=== PATIENT | male | born 1980 | race Caucasian/White ===

== ENCOUNTER 2016-07-13 11:43 | Emergency (ER) | payer OTHER ==
[~2016-07-13] VITALS: Ht 177.8 cm; Wt 81.6 kg
--- NOTE | 2016-07-13 12:19 | ED CARDIAC/CP/PALPITATIONS ---
History of Present Illness General Chief Complaint: Chest Pain Stated Complaint: CP DIZZINESS Source: patient Exam Limitations: no limitations Vital Signs & Intake/Output Vital Signs & Intake/Output Vital Signs Date Time Temp Pulse Resp B/P Pulse O2 O2 Flow FiO2 Ox Delivery Rate 07/13 1403 97.7 67 18 115/64 97 Room Air 07/13 1221 Room Air 07/13 1152 98.0 100 20 150/100 97 Room Air Allergies Coded Allergies: Penicillins (UNKNOWN 07/13/16) amoxicillin (UNKNOWN 07/13/16) cefaclor (From [facility]) (UNKNOWN 07/13/16) Reconcile Medications Cetirizine HCl (Zyrtec) 10 MG TABLET 1 TAB PO DAILY ALLERGIES (Reported) Triage Note: PT TO ED C/O DIZZINESS X 3 DAYS. ALSO STATES BURNING CHEST PAIN AND LEFT SHOULDER ON AND OFF. DENIES N/V. CURRENTLY DENIES C/P. NO SOB OR DIFF BREATHING NOTED. Triage Nurses Notes Reviewed? yes HPI: 36-year-old male with complaints of intermittent palpitations that had a sudden onset, associated with dizziness and feeling lightheaded and irregular heartbeat. He has been having these symptoms intermittently for the last 3 days and he has some several times per day that lasts a few minutes. He seems tenderness and more when he is ambulatory and when he stands up and they improve when he is resting. He has had several episodes of illnesses recently over the last several weeks with a URI with cough congestion and rhinorrhea as well as a gastroenteritis with vomiting. 2 weeks ago he was seen at [facility] and diagnosed with esophageal spasm and he was having vomiting and anterior chest pain at that time. He states that they did blood tests and a troponin which was negative. His grandfather has heart disease that started in his 40s, there is no other heart disease noted in the family. He feels well at this time, he has a mild feeling of heart racing sensation. (YEFRI LOPEZ) Past History Travel History Traveled to [place] past 21 day No Medical History Any Pertinent Medical History? none Surgical History Surgical History: non-contributory Psychosocial History What is your primary language Korean Tobacco Use: Quit >30 days ago ETOH Use: denies use Illicit Drug Use: denies illicit drug use Family History Hx Contributory? Yes (GRANDFATHER WITH HEART DISEASE) (YEFRI LOPEZ) Review of Systems Review of Systems Constitutional: Reports: see HPI. EENTM: Reports: no symptoms. Respiratory: Reports: no symptoms. Cardiovascular: Reports: see HPI. GI: Reports: no symptoms. Genitourinary: Reports: no symptoms. Musculoskeletal: Reports: no symptoms. Skin: Reports: no symptoms. Neurological/Psychological: Reports: no symptoms. Hematologic/Endocrine: Reports: no symptoms. Immunologic/Allergic: Reports: no symptoms. All Other Systems: Reviewed and Negative (YEFRI LOPEZ) Physical Exam Physical Exam Cardiovascular: tachycardia Comments: Well-developed well-nourished person in no acute distress HEENT: Normal EENT exam, extraocular motion intact, no nystagmus. Pupils equally round and reactive to light. Nose is atraumatic. Pharynx normal. No swelling or edema. Neck: Supple, no lymphadenopathy, normal range of motion without pain or tenderness Back: Nontender, no CVA tenderness. Full range of motion Cardiovascular: Heart rate around 100 bpm, regular rhythms no murmurs, normal JVP Respiratory: Chest nontender. No respiratory distress. Breath sounds clear to auscultation bilaterally Abdomen: Soft, nontender nondistended, no appreciable organomegaly. Normal bowel sounds. No ascites Extremity: No edema, no calf tenderness to palpation, normal and equal pulses. Neuro: Alert oriented x3, motor sensory normal, cranial nerves II through XII grossly intact. Skin: No appreciable rash on exposed skin, skin is warm and dry. Psych: Mood and affect is normal, memory and judgment is normal. Core Measures ACS in differential dx? Yes Severe Sepsis Present: No Septic Shock Present: No (YEFRI LOPEZ) Progress Differential Diagnosis: AMI, aortic dissection, atrial fibrillation, cholecystitis, CHF/pulm edema, costochondritis, hyperkalemia, hypovolemia, hyperthyroid, hyperventilation, intracranial hemorrhage, musculoskeletal pain, myocarditis, pancreatitis, pericarditis, pneumonia, pneumothorax, PSVT, pulmonary embolism, PUD/GERD, PVCs/PACs, respiratory failure, rib fracture, sepsis, unstable angina, V-fib/V-Tach, WPW syndrome Plan of Care: Orders Procedure Date/time Status MISTAKE 07/13 1215 Active Telemetry/Products Mechanical Design Engineer 07/13 1215 Active TSH REFLEX 07/13 1215 Complete TROPONIN LEVEL 07/13 1215 Complete WESTERGREN SED RATE 07/13 1215 Complete D-DIMER 07/13 1215 Complete COMPREHENSIVE METABOLIC PANEL 07/13 1215 Complete CBC WITHOUT DIFFERENTIAL 07/13 1215 Complete EKG 07/13 1145 Active Laboratory Tests 07/13/16 1234: Anion Gap 12, Estimated GFR > 60, BUN/Creatinine Ratio 19.0, Glucose 120 H, Calcium 9.6, Total Bilirubin 1.0, AST 31, ALT 70, Alkaline Phosphatase 67, Troponin I < 0.01, Total Protein 7.6, Albumin 4.5, Globulin 3.1, Albumin/ Globulin Ratio 1.5, TSH &T3 &Free T4 Intrp 2.140, D-Dimer < 200, CBC w Diff NO MAN DIFF REQ, RBC 5.12, MCV 86.7, MCH 29.5, RDW 13.5, MPV 8.4, Gran % 66.3, Lymphocytes % 25.7, Monocytes % 4.7, Eosinophils % 3.0, Basophils % 0.3, Absolute Granulocytes 4.0, Absolute Lymphocytes 1.6, Absolute Monocytes 0.3, Absolute Eosinophils 0.2, Absolute Basophils 0, PUBS MCHC 34.0, ESR Westergren 10 Diagnostic Imaging: Viewed by Me: Radiology Read. Discussed w/RAD: Radiology Read. CXR Impression: no acute abnormality, no infiltrates, normal size heart, normal mediastinum Initial ED EKG: SINUS TACHYCARDIA AT 105 BPM, T INVERSION LEAD III. Rhythm Strip: sinus tachycardia (80-105) Comments: Orthostatics: Blood pressure remained stable however heart rate went from 88- 107. Patient does not appear to be clinically dehydrated and there is no objective reason for dehydration. Case discussed with Dr. Guerra, recommends outpatient follow-up. Discussed with patient, he is comfortable with this plan, possible some type of arrhythmia or SVT which was discussed with patient. He should avoid any strenuous activity and follow up as soon as possible (YEFRI LOPEZ) Departure Departure Disposition: HOME OR SELF CARE Condition: Stable Clinical Impression Primary Impression: Palpitations Secondary Impressions: Dizziness, Tachycardia Referrals: SARAH REYNOLDS MD (PCP/Family) SHANAE GUERRA MD Additional Instructions: Follow-up with linseed oil temperer as outpatient, call to make an appointment Avoid strenuous physical activity until you can see the linseed oil temperer. Departure Forms: Customer Survey General Discharge Information (YEFRI LOPEZ) PA/BAND TUMBLER Co-Sign Statement Statement: ED Attending supervision documentation- [] I saw and evaluated the patient. I have also reviewed all the pertinent lab results and diagnostic results. I agree with the findings and the plan of care as documented in the PA's/BAND TUMBLER's documentation. [x] I have reviewed the ED Record and agree with the PA's/BAND TUMBLER's documentation. [] Additions or exceptions (if any) to the PAs/BAND TUMBLER's note and plan are summarized below: [] (HAKAN CHEUNG DO) Critical Care Note Critical Care Note Critical Care Time: non-applicable (YEFRI LOPEZ)
[2016-07-13] MEDS ORDERED: ZYRTEC10 M3 PO (12:21)
[2016-07-13 12:45] LABS: ABSOLUTE BASOPHIL COUNT 0 /CUMM (0.0-0.2); ABSOLUTE EOSINOPHIL COUNT 0.2 /CUMM (0.0-0.7); ABSOLUTE LYMPH COUNT 1.6 /CUMM (1.2-3.4); ABSOLUTE MONOCYTE COUNT 0.3 /CUMM (0.10-0.60); BASOPHIL % 0.3 % (0.0-2.0); GRANULOCYTE % 66.3 % (42.2-75.2); HEMATOCRIT 44.4 % (42-52); MEAN CORPUSCULAR HGB 29.5 PG (27.0-31.0); MEAN CORPUSCULAR VOLUME 86.7 FL (80.0-94.0); MEAN PLATELET VOLUME 8.4 FL (7.4-10.4); PLATELET COUNT 229 /CUMM (130-400); RBC DISTRIBUTION WIDTH 13.5 % (11.5-14.5); RED BLOOD CELL CT 5.12 /CUMM (4.70-6.10); WHITE BLOOD CELL COUNT 6.1 /CUMM (4.8-10.8)
--- NOTE | 2016-07-13 13:08 | RADIOLOGY REPORT ---
EXAMINATION: XR CHEST CLINICAL INFORMATION: Chest pain and tachycardia COMPARISON: None. TECHNIQUE: PA and lateral views of the chest were obtained. FINDINGS: Lungs are well expanded and clear. Cardiac silhouette is normal in size. The mediastinal and hilar contours are normal. There is no pleural effusion or pneumothorax. The visualized bones and upper abdomen are unremarkable. IMPRESSION: No acute cardiopulmonary disease.
[2016-07-13 14:03] VITALS: BP 115/64
== END 2016-07-13 14:18 ==
LOC: ERH 11:43
PROVIDERS: Physician Assistant Surgical
DX: R00.2 Palpitations (principal); R42 Dizziness and giddiness; R00.0 Tachycardia, unspecified
CPT/HCPCS: 93005; 93010